=== PATIENT | male | born 1945 | race Hispanic/Latino ===

== ENCOUNTER 2018-01-12 21:20 | Emergency (ER) | payer OTHER ==
[2018-01-12 22:06] LABS: BASOPHILS % (AUTO) 0.7 % (0.0-5.0); EOSINOPHILS % (AUTO) 2.8 % (0.0-8.0); HEMATOCRIT 39.3 % (42-54); MEAN CORPUSCULAR HEMOGLOBIN 31.2 pg (27.0-33.0); MEAN CORPUSCULAR HGB CONC 32.4 g/dL (32.0-36.0); MEAN CORPUSCULAR VOLUME 96.3 fL (79-99); MONOCYTES % (AUTO) 10.4 % (3.0-13.0); NEUTROPHILS % (AUTO) 45.1 % (40.0-77.0); NUCLEATED RED BLOOD CELLS 0.2 % (0.0-0.19); PLATELET COUNT (AUTO) 136 K/uL (130-400); RED BLOOD CELL COUNT(AUTO) 4.08 MIL/uL (4.50-6.20); RED CELL DISTRIBUTION WIDTH 16.4 % (11.0-15.5); WHITE BLOOD COUNT (AUTO) 5.2 K/uL (4.8-10.8)
[2018-01-12] MEDS ORDERED: IOHEXOL 350 MG/ML 100ML INFUS..BTL IV ONE (22:23)
[2018-01-12 22:24] LABS: POTASSIUM 3.4 mmol/L (3.5-5.1)
[2018-01-12 22:30] LABS: ALBUMIN 3.7 g/dL (3.5-5.0); BILIRUBIN,TOTAL 0.6 mg/dL (0.2-1.0); TOTAL PROTEIN, SERUM 6.9 g/dL (6.0-8.3)
[2018-01-12] MEDS ORDERED: SODIUM CHLORIDE 0.9% 500ML 500 ML IV ONE (23:01)
[2018-01-12] MEDS ORDERED: ONDANSETRON HCL 4 MG/2 ML VIAL ONE (23:02)
[2018-01-12] MEDS ORDERED: MORPHINE SULFATE 4 MG/1ML SYG ONE (23:02)
== END 2018-01-13 01:28 | disposition home or self-care (01) ==
LOC: EDH 21:20
DX: S20.211A Contusion of right front wall of thorax, initial encounter (principal); Z85.820 Personal history of malignant melanoma of skin; Z98.890 Other specified postprocedural states; W01.0XXA Fall on same level from slipping, tripping and stumbling without subsequent striking against object, initial encounter; Y93.01 Activity, walking, marching and hiking; Y92.89 Other specified places as the place of occurrence of the external cause; Y99.8 Other external cause status
CPT/HCPCS: 36415; 71260; 74177; 80053; 82550; 84484; 85025; 93005; 96374; 96375; 99285; J2270; J2405; J7040; Q9967

== ENCOUNTER 2020-11-03 06:40 | Observation (INO) | payer OTHER ==
[2020-10-30 10:34] LABS: BASOPHILS % (AUTO) 0.5 % (0.0-5.0); EOSINOPHILS % (AUTO) 0.8 % (0.0-8.0); HEMATOCRIT 45.3 % (42-54); LYMPHOCYTES % (AUTO) 34.3 % (21.0-51.0); MEAN CORPUSCULAR HEMOGLOBIN 30.3 pg (27.0-33.0); MEAN CORPUSCULAR HGB CONC 32.5 g/dL (32.0-36.0); MEAN CORPUSCULAR VOLUME 93.4 fL (79-99); MONOCYTES % (AUTO) 10.4 % (3.0-13.0); NEUTROPHILS % (AUTO) 51.7 % (40.0-77.0); PLATELET COUNT (AUTO) 169 K/uL (130-400); RED BLOOD CELL COUNT(AUTO) 4.85 MIL/uL (4.50-6.20); RED CELL DISTRIBUTION WIDTH 13.5 % (11.0-15.5); WHITE BLOOD COUNT (AUTO) 8.6 K/uL (4.8-10.8)
[2020-10-30 10:34] LABS: APPEARANCE,URINE Clear (CLEAR); BILIRUBIN,URINE Negative (NEGATIVE); COLOR,URINE Dark Yellow (YELLOW); GLUCOSE, URINE (UA) Negative (NEGATIVE); KETONES,URINE Trace mg/dL (NEGATIVE); LEUKOCYTE ESTERASE ,URINE Trace (NEGATIVE); NITRATE,URINE Negative (NEGATIVE); OCCULT BLOOD,URINE Negative (NEGATIVE); PROTEIN,URINE Trace mg/dL (NEGATIVE)
[2020-10-30 10:41] LABS: CREATININE 1.1 mg/dL (0.5-1.5); POTASSIUM 3.8 mmol/L (3.5-5.1)
[2020-10-30 10:43] LABS: INR 0.99 (0.85-1.15); PROTHROMBIN TIME 10.8 SEC (9.6-11.6)
[2020-10-30 10:46] LABS: BACTERIA,URINE None Seen /HPF (None Seen); RBC,URINE 0-1 /HPF (0-1); WBC,URINE 0-1 /HPF (0-1)
[2020-10-30 10:47] LABS: CALCIUM OXALATE CRYSTALS,UR Moderate /LPF (None Seen); SQUAMOUS EPITHELIAL CELL,UR 0-2 /HPF (0-2)
[2020-10-31 14:32] VITALS: BP 133/75
[~2020-11-03] VITALS: Ht 165.1 cm; Wt 73.2 kg
[2020-11-03] VITALS (24 sets, daily range): BP systolic 104–136; BP diastolic 47–74
[2020-11-03] MEDS: CEFAZOLIN SODIUM 1 GM VIAL IVP SCH ×4 (06:00→23:53)
[~2020-11-03 06:40] MED LIST: GABA300C PO; TRAM50TA4 PO
[2020-11-03] MEDS ORDERED: LACTATED RINGERS 1000ML 1,000 ML IV ONE (07:07)
[2020-11-03] MEDS ORDERED: CEFAZOLIN SODIUM 1 GM VIAL ONE (07:16)
[2020-11-03] MEDS ORDERED: PROPOFOL 10 MG/ML 20ML VIAL IV ONE (08:00)
[2020-11-03] MEDS ORDERED: LIDOCAINE PF 100MG/5ML (2%) SYRINGE 5ML ONE (08:00)
[2020-11-03] MEDS ORDERED: SUCCINYLCHOLINE CHLORIDE 20 MG/ML 10 ML VIAL ONE (08:00)
[2020-11-03] MEDS ORDERED: ROCURONIUM 10MG/1ML SYR 10 MG/ML ML ONE (08:01)
[2020-11-03] MEDS ORDERED: FENTANYL CITRATE PF 50 MCG/1 ML 2ML VIAL ONE (08:01)
[2020-11-03] MEDS ORDERED: TRANEXAMIC ACID 1000MG/10ML ONE ×2 (08:10→11:29)
[2020-11-03] MEDS ORDERED: ROPIVACAINE 0.5% 5MG/ML 30ML IJ ONE (08:19)
[2020-11-03] MEDS ORDERED: CEFAZOLIN SODIUM 1 GM VIAL IRRIG ONE (09:30)
[2020-11-03] MEDS ORDERED: GLYCOPYRROLATE 1 MG/5 ML SYRINGE ONE (10:55)
[2020-11-03] MEDS ORDERED: NEOSTIGMINE 5MG/5ML SYR IV ONE (10:55)
[2020-11-03] MEDS ORDERED: KETOROLAC 30MG VIAL (30MG/ML) ONE (10:58)
[2020-11-03] MEDS ORDERED: ONDANSETRON 4MG INJ ONE (11:01)
[2020-11-03] MEDS ORDERED: MEPERIDINE-PF 25 MG/ML SYG ONE (11:01)
[2020-11-03] MEDS ORDERED: DiphenhydrAMINE HCL 50 MG/ML VIAL IVP PRN (11:30)
[2020-11-03] MEDS ORDERED: POTASSIUM CHLORIDE 10% ELIXIR 20 MEQ/15 ML UDCUP PO PRN (11:30)
[2020-11-03] MEDS ORDERED: KETOROLAC 15MG/ML VIAL (15MG/ML) IV PRN (11:30)
[2020-11-03] MEDS ORDERED: TRAMADOL HCL 50 MG TABLET PO PRN (11:30)
[2020-11-03] MEDS ORDERED: OXYCODONE HCL 5 MG TAB PO PRN (11:30)
[2020-11-03] MEDS ORDERED: LIDOCAINE HCL-MPF 1% 2ML VIAL IV PRN (11:30)
[2020-11-03] MEDS ORDERED: POTASSIUM CHLORIDE 20MEQ/100ML 100 ML IV PRN (11:30)
[2020-11-03] MEDS ORDERED: ONDANSETRON 4MG INJ IVP PRN (11:30)
[2020-11-03] MEDS ORDERED: FERROUS FUMARATE 324 MG TABLET PO PRN (11:30)
[2020-11-03] MEDS ORDERED: TEMAZEPAM 15 MG CAPSULE PO PRN (11:30)
[2020-11-03] MEDS ORDERED: KCL 20 MEQ ERTAB PO PRN (11:30)
[2020-11-03] MEDS: 0.9%NACL 1000ML 1,000 ML IV SCH ×2 (11:30→20:58)
[2020-11-03] MEDS ORDERED: ACETAMINOPHEN 500 MG TABLET PO SCH (11:30)
[2020-11-03] MEDS: OXYCODONE HCL 5 MG TAB PO PRN ×2 (15:06→20:57)
[2020-11-03] MEDS ORDERED: ACETAMINOPHEN 500 MG TABLET ONE (19:57)
[2020-11-03] MEDS: TAMSULOSIN HCL 0.4 MG CAP.ER.24H PO SCH (20:52)
[2020-11-03] MEDS: FAMOTIDINE 20MG TAB PO SCH (20:52)
[2020-11-03] MEDS: ASPIRIN 81 MG EC TAB PO SCH (20:52)
[2020-11-03] MEDS: CELECOXIB 200 MG CAP PO SCH (20:52)
[2020-11-03] MEDS: GABAPENTIN 300 MG CAPSULE PO SCH (20:57)
[2020-11-03] MEDS: ACETAMINOPHEN 500 MG TABLET PO SCH (20:58)
[2020-11-04 04:45] VITALS: BP 125/59
[2020-11-04] MEDS: 0.9%NACL 1000ML 1,000 ML IV SCH (04:46)
[2020-11-04] MEDS: OXYCODONE HCL 5 MG TAB PO PRN (04:49)
[2020-11-04] MEDS: ACETAMINOPHEN 500 MG TABLET PO SCH ×3 (04:50→21:30)
[2020-11-04 05:06] LABS: HEMATOCRIT 33.6 % (42-54); MEAN CORPUSCULAR HEMOGLOBIN 31.4 pg (27.0-33.0); MEAN CORPUSCULAR HGB CONC 33.6 g/dL (32.0-36.0); MEAN CORPUSCULAR VOLUME 93.3 fL (79-99); RED BLOOD CELL COUNT(AUTO) 3.6 MIL/uL (4.50-6.20); RED CELL DISTRIBUTION WIDTH 13.5 % (11.0-15.5); WHITE BLOOD COUNT (AUTO) 9.2 K/uL (4.8-10.8)
[2020-11-04 05:36] LABS: CREATININE 1.1 mg/dL (0.5-1.5); POTASSIUM 3.6 mmol/L (3.5-5.1)
[2020-11-04 07:51] VITALS: BP 109/49
[2020-11-04] MEDS: CALCIUM CARB 500MG PO PRN (09:12)
[2020-11-04] MEDS: CELECOXIB 200 MG CAP PO SCH ×2 (09:12→21:29)
[2020-11-04] MEDS: FAMOTIDINE 20MG TAB PO SCH ×2 (09:12→21:29)
[2020-11-04] MEDS: POLYETHYLENE GLYCOL 3350 17 GM POWD.PACK PO SCH (09:12)
[2020-11-04] MEDS: ASPIRIN 81 MG EC TAB PO SCH ×2 (09:12→21:29)
[2020-11-04 10:56] VITALS: BP 113/63
[2020-11-04] MEDS: GABAPENTIN 300 MG CAPSULE PO SCH ×2 (15:16→21:30)
[2020-11-04 16:33] VITALS: BP 108/54
[2020-11-04 20:22] VITALS: BP 113/56
[2020-11-04] MEDS: TAMSULOSIN HCL 0.4 MG CAP.ER.24H PO SCH (21:29)
[2020-11-04 23:10] VITALS: BP 120/58
[2020-11-05 04:38] VITALS: BP 128/54
[2020-11-05] MEDS: ACETAMINOPHEN 500 MG TABLET PO SCH ×2 (06:47→15:00)
[2020-11-05 08:00] VITALS: BP 129/62
[2020-11-05] MEDS: CELECOXIB 200 MG CAP PO SCH (08:21)
[2020-11-05] MEDS: ASPIRIN 81 MG EC TAB PO SCH (08:21)
[2020-11-05] MEDS: CALCIUM CARB 500MG PO PRN (08:21)
[2020-11-05] MEDS: FAMOTIDINE 20MG TAB PO SCH (08:21)
[2020-11-05] MEDS: POLYETHYLENE GLYCOL 3350 17 GM POWD.PACK PO SCH (08:21)
[2020-11-05] MEDS: OXYCODONE HCL 5 MG TAB PO PRN (08:22)
[2020-11-05] MEDS: GABAPENTIN 300 MG CAPSULE PO SCH ×2 (08:22→15:00)
[2020-11-05 11:37] VITALS: BP 126/58
[2020-11-05 16:00] VITALS: BP 112/56
[2020-11-05] MEDS ORDERED: HYDR-4060 PO (20:07)
[2020-11-05] MEDS ORDERED: AEC81 PO (20:07)
[2020-11-06] MEDS ORDERED: BISACODYL 10 MG SUPP.RECT RC PRN (11:30)
== END 2020-11-05 21:30 | disposition home health service (06) ==
LOC: DAH 06:40 → DAHIP 06:41 → DAH 06:41 → 3AH 12:25
PROVIDERS: ADMIT Orthopaedic Surgery; ATTEND Orthopaedic Surgery
DX: M17.12 Unilateral primary osteoarthritis, left knee (principal); Z20.822 Contact with and (suspected) exposure to COVID-19; D64.9 Anemia, unspecified; Z96.651 Presence of right artificial knee joint; Z79.82 Long term (current) use of aspirin
CPT/HCPCS: 27447; 36415 ×2; 80048 ×2; 81001; 85025; 85027; 85610; 87088; 87426; 87641; 93005; 96361 ×2; 96374; 96376; 97039 ×5; 97116 ×4; 97161; 97530 ×4; A4215 ×2; A4221; A4222; A4223; A4600; A4649 ×3; A4663; A4930; A9272; C1776; G0378 ×56; G8978; G8979; G8980; G8981; G8982; G8983; J0330; J0690 ×5; J1885; J2001; J2175; J2405; J2704; J2710; J2795; J3010; J3490 ×3; J7120 ×2

== ENCOUNTER 2022-01-29 16:52 | Emergency (ER) | payer OTHER ==
[~2022-01-29] VITALS: Ht 165.1 cm; Wt 63.0 kg
[~2022-01-29 16:52] MED LIST changes: +AEC81 PO; +HYDR-4060 PO; -TRAM50TA4 PO
[2022-01-29 17:20] VITALS: BP 134/79
== END 2022-01-29 17:44 | disposition home or self-care (01) ==
LOC: EDH 16:52
DX: L76.82 Other postprocedural complications of skin and subcutaneous tissue (principal); M79.89 Other specified soft tissue disorders; Z79.899 Other long term (current) drug therapy; Z79.82 Long term (current) use of aspirin; Z98.890 Other specified postprocedural states